=== PATIENT | male | born 1995 | race Asian ===

== ENCOUNTER 2018-01-26 14:37 | Emergency (ER) | payer MEDICAID ==
[~2018-01-26] VITALS: Ht 167.6 cm; Wt 70.5 kg
[2018-01-26 15:31] LABS: INFLUENZA TYPE A NEGATIVE FOR TYPE A (NEGATIVE); INFLUENZA TYPE B NEGATIVE FOR TYPE B (NEGATIVE)
[2018-01-26 17:25] VITALS: BP 137/75
== END 2018-01-26 17:48 | disposition home or self-care (01) ==
LOC: EMS 14:38
DX: J06.9 Acute upper respiratory infection, unspecified (principal); R03.0 Elevated blood-pressure reading, without diagnosis of hypertension
CPT/HCPCS: 87804

== ENCOUNTER 2021-02-28 18:58 | Emergency (ER) | payer MEDICAID ==
[~2021-02-28] VITALS: Ht 167.6 cm; Wt 68.2 kg
[2021-02-28] MEDS ORDERED: IBUPROFEN 400 MG TABLET PO ONE (19:30)
[2021-02-28 22:48] VITALS: BP 125/75
== END 2021-02-28 22:52 | disposition home or self-care (01) ==
LOC: EMS 19:04
DX: S93.401A Sprain of unspecified ligament of right ankle, initial encounter (principal); X50.1XXA Overexertion from prolonged static or awkward postures, initial encounter; Y93.89 Activity, other specified; Y92.89 Other specified places as the place of occurrence of the external cause; Y99.8 Other external cause status
CPT/HCPCS: 99283

== ENCOUNTER 2022-09-30 14:46 | Emergency (ER) | payer MEDICAID ==
[~2022-09-30] VITALS: Ht 167.6 cm; Wt 75.0 kg
[2022-09-30 14:48] VITALS: TEMP 97.9
[2022-09-30] MEDS ORDERED: IBUPROFEN 600 MG TABLET PO ONE (15:15)
[2022-09-30] MEDS ORDERED: CYCLOBENZAPRINE HCL 10 MG TABLET PO ONE (15:15)
[2022-09-30 16:00] VITALS: BP 141/90; PULSE 74; RESP 16
[2022-09-30] MEDS ORDERED: IBUP-1492 PO (16:32)
[2022-09-30] MEDS ORDERED: CYCL-448 PO (16:32)
== END 2022-09-30 16:43 | disposition home or self-care (01) ==
LOC: EMS 14:46
DX: M43.6 Torticollis (principal); R03.0 Elevated blood-pressure reading, without diagnosis of hypertension; F12.90 Cannabis use, unspecified, uncomplicated; Z91.013 Allergy to seafood
CPT/HCPCS: 99283